=== PATIENT | female | born 1985 | race Caucasian/White ===

== ENCOUNTER 2019-03-18 08:08 | Inpatient (IN) | payer MEDICAID, OTHER ==
[~2019-03-18] VITALS: Ht 162.6 cm; Wt 78.6 kg
[2019-03-18] MEDS: LACTATED RINGERS 1,000 ML IV SCH (13:30)
[2019-03-18 13:47] VITALS: BP 136/76
[2019-03-18] MEDS ORDERED: OXYTOCIN 30U/ 0.9% NaCL 500ML 500 ML IV ONE (13:59)
[2019-03-18] MEDS ORDERED: TERBUTALINE 1 MG/ML, 1ML SQ PRN (14:00)
[2019-03-18] MEDS ORDERED: CALCIUM CARBONATE 500 MG TAB.CHEW PO PRN (14:00)
[2019-03-18] MEDS ORDERED: ONDANSETRON 2MG/ML, 2ML IVPush PRN (14:00)
[2019-03-18] MEDS ORDERED: TERBUTALINE 1 MG/ML, 1ML IVPush PRN (14:00)
[2019-03-18] MEDS ORDERED: MISOPROSTOL 25 MCG TABLET ONE (14:38)
[2019-03-18 14:44] LABS: BASOPHILS # (AUTO) 0.05 x10^3/uL (0-0.1); BASOPHILS % (AUTO) 1 % (0-1); EOSINOPHILS # (AUTO) 0.03 x10^3/uL (0-0.4); EOSINOPHILS % (AUTO) 0 % (1-7); LYMPHOCYTES # (AUTO) 1.53 x10^3/uL (1-3.4); LYMPHOCYTES % (AUTO) 19 % (22-44); MD NO; MEAN CORPUSCULAR HEMOGLOBIN 34.8 pg (27.0-34.8); MEAN CORPUSCULAR HGB CONC 33.3 g/dL (32.4-35.8); MEAN CORPUSCULAR VOLUME 104.8 fL (80-100); MEAN PLATELET VOLUME 8.1 fL (7.4-10.4); MONOCYTES # (AUTO) 0.47 x10^3/uL (0.2-0.8); MONOCYTES % (AUTO) 6 % (2-9); NEUTROPHILS # (AUTO) 5.79 x10^3/uL (1.8-6.8); NEUTROPHILS % (AUTO) 74 % (42-75); PLATELET COUNT 212 x10^3/uL (130-400); RED BLOOD COUNT 3.62 x10^6/uL (3.82-5.3); RED CELL DISTRIBUTION WIDTH 13.4 % (9.6-15.2)
[2019-03-18 15:20] LABS: AMPHETAMINE SCREEN, URINE Negative (Negative); BARBITURATE SCREEN, URINE Negative (Negative); BENZODIAZEPINE SCREEN, URINE Negative (Negative); CANNABINOID SCREEN, URINE Negative (Negative); COCAINE SCREEN, URINE Negative (Negative); METHADONE SCREEN, URINE Negative (Negative); OPIATE SCREEN, URINE Negative (Negative)
[2019-03-18] MEDS ORDERED: MISOPROSTOL 25 MCG TABLET VG PRN (15:30)
[2019-03-18] MEDS ORDERED: OXYTOCIN 30U/ 0.9% NaCL 500ML 500 ML ONE (22:56)
[2019-03-18] MEDS ORDERED: NEWBORN KIT ONE (22:56)
[2019-03-18] MEDS ORDERED: FENTANYL/BUPIV./NS/PF 250 ML EPIDCONT SCH (23:01)
[2019-03-18] MEDS ORDERED: LACTATED RINGERS 1,000 ML IV SCH (23:01)
[2019-03-18] MEDS ORDERED: OXYTOCIN 30U/ 0.9% NaCL 500ML 500 ML IV PRN (23:07)
[2019-03-18] MEDS ORDERED: EPHEDRINE 50 MG/ML, 1ML IVPush PRN (23:30)
[2019-03-18] MEDS ORDERED: LACTATED RINGERS 1,000 ML IVBOLUS PRN (23:30)
[2019-03-19] MEDS ORDERED: BUPIVACAINE 0.25% ONE (00:22)
[2019-03-19] MEDS ORDERED: LIDOCAINE 1%, 20ML ONE (00:24)
[2019-03-19] MEDS ORDERED: LIDOCAINE/PF 1.5%-EPI 1:200K, 30ML ONE (00:24)
[2019-03-19] MEDS ORDERED: FENTANYL/BUPIV./NS/PF 250 ML EPIDCONT SCH (00:41)
[2019-03-19] MEDS ORDERED: LACTATED RINGERS 1,000 ML IV SCH ×4 (00:41→16:33)
[2019-03-19] MEDS ORDERED: EPHEDRINE 50 MG/ML, 1ML IVPush PRN (01:00)
[2019-03-19] MEDS ORDERED: NALOXONE 0.4 MG/ML, 1ML IVPush PRN (01:00)
[2019-03-19] MEDS ORDERED: ONDANSETRON 2MG/ML, 2ML IVPush PRN (01:00)
[2019-03-19] MEDS ORDERED: DIPHENHYDRAMINE 50 MG/ML, 1ML IVPush PRN (01:00)
[2019-03-19] MEDS ORDERED: LACTATED RINGERS 1,000 ML IVBOLUS PRN (01:00)
[2019-03-19] MEDS ORDERED: DIPHENHYDRAMINE 50 MG/ML, 1ML ONE (06:42)
[2019-03-19] MEDS ORDERED: LACTATED RINGERS 1,000 ML INTUTE PRN (10:00)
[2019-03-19] MEDS ORDERED: LACTATED RINGERS 1,000 ML INTUTE SCH (10:00)
[2019-03-19] MEDS: LACTATED RINGERS 1,000 ML IV SCH (10:00)
[2019-03-19] MEDS ORDERED: D5%-LACTATED RINGERS 1,000 ML IV SCH ×2 (11:30→11:49)
[2019-03-19] MEDS ORDERED: METOCLOPRAMIDE 5 MG/ML, 2ML ONE (14:52)
[2019-03-19] MEDS ORDERED: SODIUM CITRATE/CITRIC ACID 30 ML UDC ONE (14:52)
[2019-03-19] MEDS ORDERED: METOCLOPRAMIDE 5 MG/ML, 2ML IV ONE (15:00)
[2019-03-19] MEDS ORDERED: SODIUM CITRATE/CITRIC ACID 30 ML UDC PO ONE (15:00)
[2019-03-19] MEDS ORDERED: LACTATED RINGERS 1,000 ML IVBOLUS ONE (15:00)
[2019-03-19] MEDS ORDERED: HYDROmorphone 2 MG/ML, 1ML ONE ×3 (15:04→18:11)
[2019-03-19] MEDS ORDERED: FENTANYL PF 100 MCG/2ML ONE (15:04)
[2019-03-19] MEDS ORDERED: OXYTOCIN 10 UNITS/ML, 1ML ONE (15:04)
[2019-03-19] MEDS ORDERED: CEFAZOLIN 1,000 MG ONE (15:04)
[2019-03-19] MEDS ORDERED: ONDANSETRON 2MG/ML, 2ML ONE (15:04)
[2019-03-19] MEDS ORDERED: SODIUM CHLORIDE 0.9% PF 10ML ONE ×2 (15:05)
[2019-03-19] MEDS ORDERED: LIDOCAINE-MPF 2% ,5ML ONE ×2 (15:07→15:08)
[2019-03-19] MEDS: OXYTOCIN 30U/ 0.9% NaCL 500ML 500 ML IV SCH (16:33)
[2019-03-19] MEDS ORDERED: KETOROLAC 30 MG/1 ML ONE (16:54)
[2019-03-19] MEDS ORDERED: TRANEXAMIC ACID 100 MG/ML, 10ML IV ONE (17:00)
[2019-03-19] MEDS ORDERED: HYDROcodone/APAP 5/325 TABLET PO PRN (17:00)
[2019-03-19] MEDS ORDERED: ONDANSETRON 2MG/ML, 2ML IV PRN ×2 (17:00→17:30)
[2019-03-19] MEDS ORDERED: ACETAMINOPHEN 325 MG TABLET PO PRN (17:00)
[2019-03-19] MEDS ORDERED: CALCIUM CARBONATE 500 MG TAB.CHEW PO PRN (17:00)
[2019-03-19] MEDS ORDERED: TRANEXAMIC ACID 1,000 MG in SODIUM CHLORIDE 0.9% 100 ML IVPB ONE (17:00)
[2019-03-19] MEDS ORDERED: METHYLERGONOVINE 0.2 MG/ML IM PRN (17:00)
[2019-03-19] MEDS: KETOROLAC 30 MG/1 ML IVPush SCH ×2 (17:16→22:57)
[2019-03-19] MEDS ORDERED: OXYcodone 5 MG/5 ML ORAL.SOL UDC ONE (17:18)
[2019-03-19] MEDS ORDERED: OXYcodone 5 MG/5 ML ORAL.SOL UDC PO PRN (17:30)
[2019-03-19] MEDS ORDERED: HYDROmorphone 2 MG/ML, 1ML IV PRN (17:30)
[2019-03-19] MEDS ORDERED: FENTANYL PF 100 MCG/2ML IVPush PRN (17:30)
[2019-03-19 18:50] VITALS: BP 113/74
[2019-03-19] MEDS: OXYcodone/APAP 5/325MG TABLET PO PRN (23:18)
[2019-03-19 23:20] VITALS: BP 133/88
[2019-03-20] MEDS: OXYTOCIN 30U/ 0.9% NaCL 500ML 500 ML IV SCH ×3 (02:33→22:33)
[2019-03-20] MEDS: OXYcodone/APAP 5/325MG TABLET PO PRN ×5 (02:51→20:25)
[2019-03-20 03:02] LABS: BASOPHILS # (AUTO) 0.01 x10^3/uL (0-0.1); BASOPHILS % (AUTO) 0 % (0-1); EOSINOPHILS # (AUTO) 0.01 x10^3/uL (0-0.4); EOSINOPHILS % (AUTO) 0 % (1-7); LYMPHOCYTES # (AUTO) 1.45 x10^3/uL (1-3.4); LYMPHOCYTES % (AUTO) 10 % (22-44); MD NO; MEAN CORPUSCULAR HEMOGLOBIN 35.3 pg (27.0-34.8); MEAN CORPUSCULAR VOLUME 106.9 fL (80-100); MEAN PLATELET VOLUME 8.1 fL (7.4-10.4); MONOCYTES # (AUTO) 0.35 x10^3/uL (0.2-0.8); MONOCYTES % (AUTO) 2 % (2-9); NEUTROPHILS # (AUTO) 13.43 x10^3/uL (1.8-6.8); NEUTROPHILS % (AUTO) 88 % (42-75); PLATELET COUNT 164 x10^3/uL (130-400); RED BLOOD COUNT 3.33 x10^6/uL (3.82-5.3); RED CELL DISTRIBUTION WIDTH 13.7 % (9.6-15.2)
[2019-03-20 03:45] VITALS: BP 108/68
[2019-03-20] MEDS ORDERED: MORPHINE SULFATE 4 MG/ML, 1ML IVPush ONE (03:55)
[2019-03-20] MEDS: KETOROLAC 30 MG/1 ML IVPush SCH ×3 (04:59→18:05)
[2019-03-20] MEDS: SIMETHICONE 80 MG CHEW TAB PO PRN ×2 (08:01→17:27)
[2019-03-20] MEDS: DOCUSATE 100 MG CAPSULE PO PRN ×2 (08:01→20:25)
[2019-03-20] MEDS: PRENATAL VIT/IRON/FA 1 EACH TABLET PO SCH (08:01)
[2019-03-20 08:10] VITALS: BP 111/71
[2019-03-20 12:15] VITALS: BP 121/80
[2019-03-20 20:00] VITALS: BP 116/75
[2019-03-21] MEDS: IBUPROFEN 600 MG TABLET PO PRN ×4 (00:10→23:30)
[2019-03-21] MEDS: SIMETHICONE 80 MG CHEW TAB PO PRN ×2 (00:10→08:20)
[2019-03-21] MEDS: OXYcodone/APAP 5/325MG TABLET PO PRN ×4 (00:51→19:42)
[2019-03-21 08:15] VITALS: BP 132/82
[2019-03-21] MEDS: PRENATAL VIT/IRON/FA 1 EACH TABLET PO SCH (08:20)
[2019-03-21] MEDS: DOCUSATE 100 MG CAPSULE PO PRN (08:20)
[2019-03-21] MEDS: OXYTOCIN 30U/ 0.9% NaCL 500ML 500 ML IV SCH ×2 (08:33→18:33)
[2019-03-21 19:30] VITALS: BP 131/87
[2019-03-22] MEDS: OXYTOCIN 30U/ 0.9% NaCL 500ML 500 ML IV SCH ×2 (04:45→14:33)
[2019-03-22] MEDS: IBUPROFEN 600 MG TABLET PO PRN ×3 (06:01→22:22)
[2019-03-22] MEDS: SIMETHICONE 80 MG CHEW TAB PO PRN ×3 (06:01→16:13)
[2019-03-22 08:00] VITALS: BP 145/93
[2019-03-22] MEDS: PRENATAL VIT/IRON/FA 1 EACH TABLET PO SCH (08:57)
[2019-03-22] MEDS: OXYcodone/APAP 5/325MG TABLET PO PRN ×3 (08:58→22:23)
[2019-03-22] MEDS: DOCUSATE 100 MG CAPSULE PO PRN ×2 (08:59→22:22)
[2019-03-22 21:00] VITALS: BP 121/74
[2019-03-23] MEDS: OXYTOCIN 30U/ 0.9% NaCL 500ML 500 ML IV SCH (00:33)
[2019-03-23] MEDS: IBUPROFEN 600 MG TABLET PO PRN ×2 (04:23→12:58)
[2019-03-23] MEDS: OXYcodone/APAP 5/325MG TABLET PO PRN ×2 (04:24→12:59)
[2019-03-23 09:00] VITALS: BP 147/98
[2019-03-23] MEDS ORDERED: OXYC-302 PO (11:39)
[2019-03-23] MEDS ORDERED: IBUP-1222 PO (11:40)
== END 2019-03-23 13:15 | disposition home or self-care (01) | DRG 788 ==
LOC: LDIP 13:14 → NSY 03-19 18:30 → 2NW 03-19 18:31
PROVIDERS: ADMIT Obstetrics & Gynecology; ATTEND Obstetrics & Gynecology
PROC: 10D00Z1 Extraction of Products of Conception, Low, Open Approach (ICD-10-PCS; principal; 2019-03-19)
DX: O62.0 Primary inadequate contractions (principal); O48.0 Post-term pregnancy; O61.9 Failed induction of labor, unspecified; Z37.0 Single live birth; Z3A.40 40 weeks gestation of pregnancy; Z88.5 Allergy status to narcotic agent
CPT/HCPCS: 36415; J3490; J7121; 80307; 82803; 85025; 86850; 86900; G0378; J0690; J1170; J1885; J2405; J3010; J1200; J2270; J2590; J2765; J7120

== ENCOUNTER 2020-10-07 09:40 | Emergency (ER) | payer MEDICAID, OTHER ==
[~2020-10-07] VITALS: Ht 167.6 cm; Wt 72.3 kg
[~2020-10-07 09:40] MED LIST: IBUP-1222 PO; OXYC1TAB14 PO
--- NOTE | 2020-10-07 10:11 | NUR ---
NA X1
[2020-10-07 10:17] LABS: MICROSCOPIC AUTO
--- NOTE | 2020-10-07 10:55 | NUR ---
NA X2
--- NOTE | 2020-10-07 11:04 | NUR ---
ASSUMED CARE OF PT. SHE IS HERE FOR ABD RLQ THAT STARTED LAST NIGHT, WORSENED THIS AM. TENDER TO TOUCH, DENIES NAUSEA. PT IN GOWN, PLACED ON MONITOR. SHE REPORTS THAT SHE TURNED IN HER URINE SAMPLE. VERO SALINAS, CALL LIGHT W/IN REACH.
[2020-10-07] MEDS ORDERED: KETOROLAC 30 MG/1 ML ONE (11:42)
--- NOTE | 2020-10-07 11:52 | NUR ---
LOOP PULLER STARTED PIV, PT MEDICATED PER MAY. PT HTN, OTHER VSS. NADN, PT SPEAKING W/ FRIEND. CALL LIGHT W/IN REACH.
[2020-10-07] MEDS ORDERED: SODIUM CHLORIDE 0.9% 1,000ML IVBOLUS ONE (12:00)
[2020-10-07] MEDS ORDERED: KETOROLAC 30 MG/1 ML IVPush ONE (12:00)
[2020-10-07 12:06] LABS: BASOPHILS % (AUTO) 1 % (0-1); EOSINOPHILS % (AUTO) 1 % (1-7); LYMPHOCYTES % (AUTO) 18 % (22-44); MEAN CORPUSCULAR HEMOGLOBIN 35.7 pg (27.0-34.8); MEAN CORPUSCULAR HGB CONC 34.9 g/dL (32.4-35.8); MEAN PLATELET VOLUME 8.2 fL (7.4-10.4); MONOCYTES % (AUTO) 6 % (2-9); NEUTROPHILS % (AUTO) 75 % (42-75); PLATELET COUNT 190 x10^3/uL (130-400); RED BLOOD COUNT 4.18 x10^6/uL (3.82-5.3); RED CELL DISTRIBUTION WIDTH 13.8 % (9.6-15.2)
[2020-10-07 12:08] LABS: ALANINE AMINOTRANSFERASE 59 U/L (12-78); ALBUMIN 3.8 g/dL (3.4-5.0); ANION GAP 7 mmol/L (5-15); CALCIUM 9.2 mg/dL (8.5-10.1); CHLORIDE 107 mmol/L (98-107); CREATININE 0.74 mg/dL (0.55-1.02)
[2020-10-07 12:12] LABS: ALKALINE PHOSPHATASE 80 U/L (45-117); BILIRUBIN,TOTAL 0.7 mg/dL (0.2-1.0); TOTAL PROTEIN 7.4 g/dL (6.4-8.2)
--- NOTE | 2020-10-07 12:32 | NUR ---
PT TO CT
[2020-10-07] MEDS ORDERED: OMNIPAQUE 350 MG/ML, 100ML BOTTLE ONE (12:46)
[2020-10-07 13:58] VITALS: BP 134/91
[2020-10-07] MEDS ORDERED: CEFTRIAXONE 1,000 MG in DEXTROSE 5% 50 ML IVPB ONE (14:00)
== END 2020-10-07 14:08 | disposition home or self-care (01) ==
LOC: ED 12:08
DX: N30.00 Acute cystitis without hematuria (principal); K59.00 Constipation, unspecified
CPT/HCPCS: 36415; 74177; 80053; 81001; 84703; 85025; 87077; 87086; 96361; 96365; 96375; 99285; J0696; J1885; J7030; Q9967; 87186